=== PATIENT | female | born 1935 | race Caucasian/White ===

== ENCOUNTER → 2017-02-20 | Outpatient (CLI) | payer MEDICARE ==
--- NOTE | 2017-02-21 10:36 | US ---
EXAM DESCRIPTION: Carotid Duplex CLINICAL HISTORY: 81 years,Female,CAROTID ARTERY DISEASE COMPARISON: None TECHNIQUE: Multiple real-time duplex Doppler ultrasound images were obtained the carotid arteries. FINDINGS: The right carotid system demonstrates moderate to severe intimal thickening. The common carotid artery demonstrates no significant stenosis. The ICA demonstrates no significant stenosis. The left carotid system demonstrates moderate to severe intimal thickening. The common carotid artery demonstrates no significant stenosis. The internal carotid artery demonstrates a smooth soft tissue plaque of at most 20% diameter reduction.. The right carotid system demonstrates unremarkable waveforms. The right vertebral artery demonstrates antegrade flow. The left carotid system demonstrates unremarkable waveforms. The left vertebral artery demonstrates antegrade flow. On the right, the velocity in the mid common carotid artery is 94 cm/sec. The mid internal carotid artery is 97 cm/sec. The ICA/CCA ratio is 1. On the left, the velocity in the mid common carotid artery is 81 cm/sec. The mid internal carotid artery is 81 cm/sec. The ICA/CCA ratio is 1.0. IMPRESSION: Moderate to severe intimal thickening in both carotid arteries. With a mild less than 20% soft tissue stenotic plaque in the left internal carotid artery. But no hemodynamic significant stenosis. Electronically signed by: Bran Ceron MD 02/21/2017 10:34 AM CDT
== END | disposition home or self-care (01) ==
LOC: US 09:06
PROVIDERS: ATTEND Nurse Practitioner Family
DX: I65.23 Occlusion and stenosis of bilateral carotid arteries (principal)

== ENCOUNTER → 2017-08-07 | Outpatient (CLI) | payer MEDICARE | END | disposition home or self-care (01) | LOC: LAB.O 07:46 | PROVIDERS: ATTEND Nurse Practitioner Family | DX: R53.83 Other fatigue (principal); I10 Essential (primary) hypertension; R00.1 Bradycardia, unspecified ==

== ENCOUNTER → 2017-11-16 | Outpatient (CLI) | payer MEDICARE | LOC: LAB.O 08:05 | PROVIDERS: ATTEND Internal Medicine Cardiovascular Disease | DX: E87.6 Hypokalemia (principal) ==

== ENCOUNTER → 2018-12-20 | Outpatient (CLI) | payer MEDICARE ==
--- NOTE | 2018-12-20 11:43 | US ---
EXAM DESCRIPTION: Carotid Duplex: ULTRASOUND. CLINICAL HISTORY: 83 years Female Occlusion and stenosis of bilateral carotid arteries COMPARISON: Ultrasound carotid duplex evaluation 02/20/2017. TECHNIQUE: Transcutaneous scanning utilizing armstrong-scale and Doppler modes to evaluate the bilateral carotid systems and vertebral arteries. Percentage of diameter of stenosis or no stenosis recorded will be based upon NASCET criteria. FINDINGS: Peak systolic/end diastolic (CM-Sec) CCA Right 78/12 Left 70/10. ICA Right proximal 54/11, mid 73/13. Left proximal 69/8, Distal 70/16. Vertebral Right 64/11 Left 68/10. ECA (PS Only) Right 81 left 106. ICA/CCA peak systolic ratio: Right 0.9 Left 1.0 ICA/CCA end diastolic ratio: Right 1.1 Left 1.6 Vertebral arteries: antegrade flow. Comments: Bilateral plaque echogenic at the distal common carotid bifurcations. Mild spectral broadening bilateral proximal ICAs. Bilateral diameter stenoses less than 30% proximal ICAs and carotid bulbs. IMPRESSION: 1. Doppler evaluation of the bilateral carotid systems and vertebral arteries shows no hemodynamically significant stenoses. 2. Minimal echogenic plaque seen in the carotid arteries bilaterally. Bilateral vertebral arteries showed antegrade-cephalad flow. Stable since the prior study. Electronically signed by: Flaco King MD 12/20/2018 11:41 AM CDT
== END ==
LOC: US 10:00
PROVIDERS: ATTEND Nurse Practitioner Family
DX: I65.23 Occlusion and stenosis of bilateral carotid arteries (principal)

== ENCOUNTER → 2019-04-29 | Outpatient (CLI) | payer MEDICARE | LOC: LAB.O 10:12 | PROVIDERS: ATTEND Internal Medicine Nephrology | DX: N18.2 Chronic kidney disease, stage 2 (mild) (principal) ==

== ENCOUNTER → 2020-03-30 | Outpatient (CLI) | payer MEDICARE | LOC: LAB.O 08:24 | PROVIDERS: ATTEND Family Medicine | DX: I10 Essential (primary) hypertension (principal); E78.5 Hyperlipidemia, unspecified; E55.9 Vitamin D deficiency, unspecified ==